=== PATIENT | female | born 1945 | race Caucasian/White ===

== ENCOUNTER → 2016-08-24 | Outpatient (CLI) | payer OTHER ==
[~2016-08-24] MED LIST: CYAN100015 BUCCAL; ESTR0.5T PO; EXCETAB PO; LEVO75TA3 PO; LISI10TA3 PO; MEDR2.5T2 PO; MULT-65 PO; PARO20TA2 PO; PNEU13P IM; SIMV20TA PO; VITA100T PO
[2016-08-24 07:46] LABS: AUTOMATED NEUTROPHIL # 3.2 TH/MM3 (1.8-7.7); BASOPHIL % 0.4 % (0.0-2.0); EOSINOPHIL # 0.2 TH/MM3 (0-0.4); EOSINOPHIL % 2.7 % (0.0-4.0); HEMO FLAGS DIFF FINAL; LYMPH % 38.1 % (9.0-44.0); LYMPHOCYTE # 2.4 TH/MM3 (1.0-4.8); MEAN CELL VOLUME 93.7 FL (80.0-100.0); MEAN CORPUSCULAR HEMOGLOBIN 31.6 PG (27.0-34.0); MEAN CORPUSCULAR HGB CONC 33.8 % (32.0-36.0); MONO % 7.5 % (0.0-8.0); NEUT % 51.3 % (16.0-70.0); PLATELET COUNT 206 TH/MM3 (150-450); RED BLOOD COUNT 4.06 MIL/MM3 (4.00-5.30); RED CELL DISTRIBUTION WIDTH 12.9 % (11.6-17.2); WHITE BLOOD COUNT 6.2 TH/MM3 (4.0-11.0)
--- NOTE | 2016-08-25 11:00 | EKG ---
Date Performed: 08/24/2016 Time Performed: 07:30:27 PTAGE: 70 years EKG: Sinus rhythm POSSIBLE LEFT ATRIAL ENLARGEMENT BORDERLINE ECG PREVIOUS TRACING : 11/11/2014 07.47 Compared to prior tracing no significant change DOCTOR: Loretta Wyman Interpretating Date/Time 08/25/2016 10:59:43
== END ==
LOC: CLAB 06:54
PROVIDERS: ATTEND Orthopaedic Surgery Hand Surgery
DX: I10 Essential (primary) hypertension (principal); R94.31 Abnormal electrocardiogram [ECG] [EKG]
CPT/HCPCS: 36415; 85025; 93005

== ENCOUNTER → 2016-08-27 | Day surgery (SDC) | payer OTHER ==
[~2016-08-27] VITALS: Ht 160 cm; Wt 73.2 kg
[~2016-08-27] MED LIST changes: +ACETAMINOPHEN 325 MG TAB PO PRN; +APREPITANT 40 MG CAP ONE; +BACITRACIN TOP OINT 15 GM TUBE ONE; +BUPIVACAINE HCL PF 0.5% 30 ML VIAL NERV BLOCK ONE; +BUPIVACAINE HCL PF 0.5% 30 ML VIAL ONE; +CLINDAMYCIN PHOS 900 MG/6 ML VIAL ONE; +FAMOTIDINE 20 MG/2 ML VIAL ONE; +LACTATED RINGER'S 1000 ML INJ 1,000 ML IV SCH; +LACTATED RINGER'S 1000 ML INJ 1,000 ML ONE; +LIDOCAINE HCL 2% 50 ML VIAL ONE; +MIDAZOLAM HCL 2 MG/2 ML VIAL ONE; +MIDAZOLAM HCL 5 MG/ML VIAL (1 ML) ONE; +ONDANSETRON HCL 4 MG/2 ML VIAL IV PRN; +PROPOFOL 200 MG/20 ML AMP IV ONE; +SODIUM CHLORIDE 0.9% INJ 100 ML ONE; +ePHEDrine/NS 25 MG/5 ML SYR IV ONE
[2016-08-27 06:47] VITALS: BP 165/83; PULSE 91; RESP 18; TEMP 98.5; O2SAT 98
[2016-08-27 07:10] VITALS: PULSE 90
[2016-08-27 11:15] VITALS: BP 123/6; PULSE 75; RESP 16; TEMP 98.2; O2SAT 100
--- NOTE | 2016-08-29 16:57 | MP ---
cc: [facility], AJAY BREEN M.D. DATE OF SURGERY August 27, 2016 PREOPERATIVE DIAGNOSIS Right trapezial metacarpal joint osteoarthritis and pain with right de Quervain's tendonitis. POSTOPERATIVE DIAGNOSIS Right trapezial metacarpal joint osteoarthritis and pain with right de Quervain's tendonitis with right scaphotrapezoid arthritis. PROCEDURE Right trapezial excision with partial trapezoidectomy and flexor carpi radialis suspensionplasty and release right first dorsal wrist compartment. ANESTHESIA Axillary block with general. TOURNIQUET TIME 56 minutes INDICATIONS Ms. Do is a pleasant 70-year-old lady with symptomatic right trapezial metacarpal joint arthritis recalcitrant to conservative therapy with injections and splinting. She also has right de Quervain's tendonitis and she is brought to operating room for definitive treatment. PROCEDURE Appropriate written consent was obtained in the preop holding area. Side and site was identified and axillary block performed on her right upper extremity by Dr. Patterson and the [employer]. She was brought to the operating room again side and site were identified and a tourniquet placed on her right arm. General anesthesia was performed by the [employer] SU[employer] and Dr. Patterson and her right upper extremity prepped and draped in the usual sterile fashion with Hibiclens, exsanguinated with an Chris wrap and tourniquet inflated to 250 mmHg where it remained for the next 56 minutes. A longitudinal incision was made just volar to the right first dorsal wrist compartment 3 cm in length. Blunt dissection proceeded with tenotomy scissors. Hemostasis with bipolar cautery. The first dorsal compartment was identified and released sharply with a 15 blade on the dorsum near its insertion and with tenotomy scissors proximally and distally. There was a separate compartment for the EPB tendon and this was released and with flexion/extension of the wrist there was no subluxation of the tendon. The wound was closed with 5-0 nylon in an interrupted fashion and 5 pounds of finger trap traction was placed on the right thumb and 3-cm incision was made over the right trapezial metacarpal joint 3 cm in length. Blunt dissection proceeded with tenotomy scissors. Hemostasis with bipolar cautery. An incision was made in the trapezial metacarpal joint capsule and elevated from about the trapezium with a 15 blade and a 6600 elem blade and splint in a longitudinal fashion with an osteotome and removed piecemeal. There were significant degenerative changes between the scaphoid and the trapezoid. Therefore, the proximal and third of the trapezoid was excised with an osteotome and a rongeur to decompress the area. The FCR tendon was identified and incision was made in the forearm 3 cm in length over the musculotendinous junction and the tendon was detached from the muscle and pulled into the wrist wound. Then the forearm wound was closed with 5-0 nylon. The FCR tendon was split in a longitudinal fashion near its insertion and a 3.2 mm drill bit was used to drill in the base of the thumb metacarpal from dorsal radial to volar ulnar in the central portion of the base of the thumb metacarpal which was eburnated. The FCR half was passed from volar to dorsal through this bone tunnel and secured onto itself with the Mac tendon passer, and a Pulvertaft weave and secured with 4-0 Mersilene, tied into a braid and secured in the trapezial space with 4-0 Mersilene. The wound was irrigated with saline. Cancellus bone from the trapezium was packed into the bone tunnel and the traction was removed and the thumb quite stable. The trapezial metacarpal joint capsule closed with 4-0 Mersilene and the skin with 5-0 nylon. Bacitracin ointment, Adaptic placed on all of the wounds and a bulky dressing with 4x4s, Sof-Rol and 3 x 12 fiberglass thumb spica splint and Chris wrap. The tourniquet was deflated after 52 minutes. The fingers pinked up immediately. The patient was taken to the recovery room in good condition having tolerated the procedure well. Estimated blood loss was minimal. MD ROSALVA Guerrero/JAKE /9:04 AM /4:29 PM WICHO
== END | disposition home or self-care (01) ==
LOC: PHSDC 06:14
PROVIDERS: ATTEND Orthopaedic Surgery Hand Surgery
DX: M65.4 Radial styloid tenosynovitis [de Quervain] (principal); M18.11 Unilateral primary osteoarthritis of first carpometacarpal joint, right hand; I10 Essential (primary) hypertension; E78.5 Hyperlipidemia, unspecified
CPT/HCPCS: 01810; 25000; 25310; 25447; 64415; J2250; J3010; J7120; J8501

== ENCOUNTER → 2016-10-18 | Outpatient (CLI) | payer OTHER ==
[~2016-10-18] MED LIST changes: -ACETAMINOPHEN 325 MG TAB PO PRN; -APREPITANT 40 MG CAP ONE; -BACITRACIN TOP OINT 15 GM TUBE ONE; -BUPIVACAINE HCL PF 0.5% 30 ML VIAL NERV BLOCK ONE; -BUPIVACAINE HCL PF 0.5% 30 ML VIAL ONE; -CLINDAMYCIN PHOS 900 MG/6 ML VIAL ONE; -CYAN100015 BUCCAL; -FAMOTIDINE 20 MG/2 ML VIAL ONE; -LACTATED RINGER'S 1000 ML INJ 1,000 ML IV SCH; -LACTATED RINGER'S 1000 ML INJ 1,000 ML ONE; -LIDOCAINE HCL 2% 50 ML VIAL ONE; -MIDAZOLAM HCL 2 MG/2 ML VIAL ONE; -MIDAZOLAM HCL 5 MG/ML VIAL (1 ML) ONE; -ONDANSETRON HCL 4 MG/2 ML VIAL IV PRN; -PROPOFOL 200 MG/20 ML AMP IV ONE; -SODIUM CHLORIDE 0.9% INJ 100 ML ONE; -ePHEDrine/NS 25 MG/5 ML SYR IV ONE
[2016-10-18 07:54] LABS: ANION GAP 6 MEQ/L (5-15); AST (GOT) 27 U/L (15-37); BLOOD UREA NITROGEN 15 MG/DL (7-18); CHLORIDE 109 MEQ/L (98-107); GLOMERULAR FILTRATION RATE 80 ML/MIN (>89); POTASSIUM 4.2 MEQ/L (3.5-5.1); SODIUM (NA) 143 MEQ/L (136-145)
[2016-10-18 08:10] LABS: ALKALINE PHOSPHATASE 92 U/L (45-117); ALT (GPT) 36 U/L (10-53); GLUCOSE,FASTING 109 MG/DL (74-99); HDL CHOLESTEROL 42.6 MG/DL (40.0-60.0); LDL CHOLESTEROL 86 MG/DL (0-99); TOTAL BILIRUBIN ADULT 0.4 MG/DL (0.2-1.0)
== END ==
LOC: CLAB 06:45
PROVIDERS: ATTEND Family Medicine
DX: E78.00 Pure hypercholesterolemia, unspecified (principal); E03.9 Hypothyroidism, unspecified
CPT/HCPCS: 36415; 80053; 80061; 84443

== ENCOUNTER 2017-01-30 15:19 | Emergency (ER) | payer OTHER ==
[~2017-01-30] VITALS: Ht 160 cm; Wt 76.0 kg
[~2017-01-30 15:19] MED LIST changes: +ESTR0.5T3 PO; -EXCETAB PO; +EXCETAB30 PO; -MEDR2.5T2 PO; +MEDR2.5T4 PO; -PNEU13P IM; +VITA10002 PO; -VITA100T PO; +ZOCO20TA PO
[2017-01-30 15:21] VITALS: BP 168/71; PULSE 95; RESP 15; TEMP 97.8; O2SAT 98
[2017-01-30] MEDS ORDERED: diphenhydrAMINE HCL 50 MG CAP PO ONE (18:30)
[2017-01-30] MEDS ORDERED: predniSONE 20 MG TAB PO ONE (18:30)
--- NOTE | 2017-01-30 18:54 | PD ---
HPI Chief Complaint: ENT Complaint Time Seen by Provider: 18:05 Travel History International Travel<30 days: No Contact w/Intl Traveler<30days: No Traveled to known affect area: No History of Present Illness HPI Patient 71-year-old female presents emergency department for evaluation of sore throat pain. Swallowing for the past few days. Patient states she has a history of recurrent bronchitis. Denies any fever denies any neck pain denies any rash. Does endorse cough and congestion. Symptoms are moderate gradually worsening. PFSH Past Medical History Cancer: Yes (SKIN) Diabetes: No Diminished Hearing: No Endocrine: Yes Glaucoma: No Headaches: Yes Hepatitis: No Hiatal Hernia: No Hypertension: Yes (JUST WATCHING--NO MEDS YET) Immune Disorder: No Medical other: Yes (HYPERLIPIDEMIA) Musculoskeletal: Yes (ARTHRITIS) Neurologic: No Psychiatric: Yes (DEPRESSION) Reproductive: No Respiratory: Yes (JIN) Immunizations Current: Yes Thyroid Disease: Yes (LOW) Menopausal: Yes Tubal Ligation: Yes (1971) Past Surgical History Abdominal Surgery: Yes (APPY) AICD: No Cardiac Surgery: No Ear Surgery: No Endocrine Surgery: No Eye Surgery: No Genitourinary Surgery: No Gynecologic Surgery: Yes (TUBAL LIGATION) Joint Replacement: Yes (RIGHT KNEE) Oral Surgery: No Pacemaker: No Thoracic Surgery: No Other Surgery: Yes Social History Alcohol Use: No Tobacco Use: No Substance Use: No Allergies-Medications (Allergen,Severity, Reaction): Coded Allergies: acetaminophen (Unverified Allergy, Mild, ITCHING, 01/30/17) ANAL ,VAGINAL AND FACIAL ITCHING- INTERMEDIATE REACTION hydrocodone (Unverified Allergy, Mild, ITCHING, 01/30/17) ANAL ,VAGINAL AND FACIAL ITCHING- INTERMEDIATE REACTION morphine (Unverified Adverse Reaction, Intermediate, SEVERE VOMITING, 01/30) propoxyphene (Unverified Adverse Reaction, Intermediate, SHAKES, 01/30/17) codeine (Unverified Adverse Reaction, Mild, VOMITING,DIZZINESS, 01/30/17) INTERMEDIATE REACTION meperidine (Unverified Adverse Reaction, Mild, VOMITING, 01/30/17) INTERMEDIATE REACTION penicillin G (Unverified Adverse Reaction, Mild, VOMITING, 01/30/17) VOMITING AND SEVERE RASH - INTERMEDIATE REACTION *MDRO Multi-Drug Resistant Organism (Verified Adverse Reaction, Unknown, 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 Reported Meds & Prescriptions Reported Meds & Active Scripts Active Prednisone 20 Mg Tab 60 Mg PO DAILY 5 Days Lisinopril 10 Mg Tab 10 Mg PO DAILY Simvastatin 20 Mg Tab 20 Mg PO HS Levothyroxine (Levothyroxine Sodium) 75 Mcg Tab 75 Mcg PO DAILY Reported Paroxetine (Paroxetine HCl) 20 Mg Tab 20 Mg PO HS Medroxyprogesterone Acetate 2.5 Mg Tablet 1 Tab PO DAILY Estrace (Estradiol) 0.5 Mg Tab 0.5 Mg PO DAILY Vitamin B-12 (Cyanocobalamin) 1,000 Mcg Tab 1,000 Mcg PO DAILY Excedrin Migraine Caplet (Aspirin/Acetaminophen/Caffeine) 1 Each Tablet 1 Tab PO Q12HR PRN Estradiol 0.5 Mg Tab 0.5 Mg PO DAILY Multi-Vitamin Daily (Multiple Vitamin) 1 Tab Tab 1 Tab PO DAILY Review of Systems Except as stated in HPI: all other systems reviewed are Neg Physical Exam Narrative GENERAL: Well-nourished, well-developed patient. SKIN: Focused skin assessment warm/dry. HEAD: Normocephalic. EYES: No scleral icterus. No injection or drainage. ENT: TMs clear bilaterally, oropharynx clear however there is some erythema surrounding the uvula the uvula is midline. Uvula is probably 2 cm in length probably consistent with uvulitis. Swallow is intact. NECK: Supple, trachea midline. No JVD or lymphadenopathy. Full nontender range of motion. CARDIOVASCULAR: Regular rate and rhythm without murmurs, gallops, or rubs. RESPIRATORY: Breath sounds equal bilaterally. No accessory muscle use. GASTROINTESTINAL: Abdomen soft, non-tender, nondistended. MUSCULOSKELETAL: No cyanosis, or edema. BACK: Nontender without obvious deformity. No CVA tenderness. Data Data Last Documented VS Vital Signs Date Time Temp Pulse Resp B/P (MAP) Pulse Ox O2 Delivery O2 Flow Rate FiO2 01/30/17 19:41 83 18 182/74 (110) 97 01/30/17 15:21 97.8 Orders Orders Diphenhydramine (Benadryl) (01/30/17 18:30) Prednisone (Deltasone) (01/30/17 18:30) MDM Medical Decision Making Medical Screen Exam Complete: Yes Emergency Medical Condition: Yes Differential Diagnosis URI, uvulitis, pneumonia unlikely, lisinopril associated angioedema unlikely. Narrative Course patient roomed emerged permit, observed for an hour while in the examination room. She's had no worsening of her symptoms and feels well to go. Likely diagnosis of uvulitis likely viral. Discussed symptomatic management we'll place on empiric prednisone. Discussed return to ED criteria and criteria call 911. Discussed need to follow up with her primary care physician and discuss lisinopril but at this time my suspicion for JUDIT angioedema is quite low. Diagnosis Primary Impression: Uvulitis Departure Forms: Tests/Procedures, Work Release Enter return to work date: Feb 01, 2017 Additional Instructions: Benadryl 25mg orally every 12 hours as needed for sore throat. Med/Other Pt SpecificInfo: Prescription(s) given Scripts Prednisone (Prednisone) 20 Mg Tab 60 MG PO DAILY for 5 Days, #15 TAB 0 Refills Prov: Mp Ward MD 01/30/17 Disposition: 01 DISCHARGE HOME Condition: Stable Mp Ward MD Jan 30, 2017 18:54
[2017-01-30] MEDS ORDERED: PRED20 PO (19:00)
[2017-01-30 19:41] VITALS: BP 182/74
== END 2017-01-30 19:42 | disposition home or self-care (01) ==
LOC: NEPD 15:19
DX: K12.2 Cellulitis and abscess of mouth (principal)
CPT/HCPCS: 99283; J7512; Q0163

== ENCOUNTER → 2017-04-18 | Outpatient (CLI) | payer OTHER ==
[~2017-04-18] MED LIST changes: -EXCETAB30 PO; +EXCETAB31 PO; +PRED20 PO; +PRIN10TA; -ZOCO20TA PO
[2017-04-18 07:22] LABS: ALT (GPT) 31 U/L (10-53); ANION GAP 7 MEQ/L (5-15); AST (GOT) 21 U/L (15-37); BICARBONATE 26.9 MEQ/L (21.0-32.0); BLOOD UREA NITROGEN 17 MG/DL (7-18); CHLORIDE 108 MEQ/L (98-107); GLOMERULAR FILTRATION RATE 64 ML/MIN (>89); GLUCOSE,FASTING 111 MG/DL (74-99); POTASSIUM 3.8 MEQ/L (3.5-5.1); SODIUM (NA) 142 MEQ/L (136-145)
[2017-04-18 07:31] LABS: ALKALINE PHOSPHATASE 80 U/L (45-117); HDL CHOLESTEROL 52.5 MG/DL (40.0-60.0); LDL CHOLESTEROL 72 MG/DL (0-99); TOTAL BILIRUBIN ADULT 0.6 MG/DL (0.2-1.0)
== END ==
LOC: CLAB 06:36
PROVIDERS: ATTEND Family Medicine
DX: E03.9 Hypothyroidism, unspecified (principal); E78.5 Hyperlipidemia, unspecified
CPT/HCPCS: 36415; 80053; 80061; 84443

== ENCOUNTER → 2017-06-14 | Day surgery (SDC) | payer OTHER ==
[~2017-06-14] MED LIST changes: +ALEV220T14 PO; -ESTR0.5T PO; -ESTR0.5T3 PO; +LIDOCAINE HCL 1% 30 ML VIAL NERV BLOCK ONE; -MEDR2.5T4 PO; -PRED20 PO; -PRIN10TA; +PROPOFOL 200 MG/20 ML AMP IV ONE; +SODIUM CHLORIDE 0.9% 10 ML VIAL ONE; +TRIAMCINOLONE ACETONIDE 40 MG/ML VIAL NERV BLOCK ONE
--- NOTE | 2017-06-16 10:03 | M6 ---
cc: Kelby CURIEL DATE 06/14/2017 Date of 1945 PROCEDURE Fluoroscopically guided T1-T2 interlaminar epidural steroid injection. PROCEDURE NOTE History and physical was completed and signed. Consent was signed. Procedure site was marked. Medications were listed and reconciled. Pain score was recorded. Allergies were noted. Time out was taken. Fluoroscopy time was recorded where applicable. Sedation was administered or directed by Dr. Curiel. The patient was given oxygen. The patient was monitored by a registered nurse. Total procedure time was greater than 15 minutes. IV was started, blood pressure cuff, pulse oximeter and EKG were applied. The patient was placed in the prone position on a Evan table sedated with small amounts of propofol titrated to effect. Vital signs were monitored and remained stable throughout the procedure. The cervical area was prepped with alcohol and 10% Betadine solution and draped with sterile drapes. Fluoroscopy was used to visualize the T1-T2 interlaminar space. The skin was infiltrated with 1% Xylocaine using a 27 gauge needle, then a 3-1/2-inch 18-gauge Thompson needle was advanced using fluoroscopic guidance and the [id number] technique into the epidural space at T1-T2 slightly to the left of the midline. There was negative aspiration for blood or any other type of fluid and the patient was given 4 mL of normal saline which contained 60 mg of Kenalog. Following this, the patient was taken to the recovery room with stable vital signs neurologically intact. She will be evaluated immediately and with followup to determine if she has a subjective decrease in the usual pain and a corresponding objective increase in her functional capabilities. MD AYANA Braga/JESSIKA /8:15 AM /9:52 AM
== END | disposition home or self-care (01) ==
LOC: PHSDC 06:57
PROVIDERS: ATTEND Pain Medicine Interventional Pain Medicine
DX: M25.512 Pain in left shoulder (principal); R20.0 Anesthesia of skin; M54.5 Low back pain; M79.652 Pain in left thigh; M79.651 Pain in right thigh
CPT/HCPCS: 62321; 99152; J3010; J3301

== ENCOUNTER → 2017-09-12 | Day surgery (SDC) | payer OTHER ==
[~2017-09-12] MED LIST changes: +ESTR0.5T PO; +LIDOCAINE HCL 1% 30 ML VIAL INFIL ONE; -LIDOCAINE HCL 1% 30 ML VIAL NERV BLOCK ONE; +MEDR5TAB3 PO
--- NOTE | 2017-09-12 08:53 | M6 ---
cc: Kelby Curiel MD DATE: 09/12/2017 PROCEDURE PERFORMED: Fluoroscopically guided T1-T2 interlaminar epidural steroid injection. History and physical was completed and signed. Consent was signed. Procedure site was marked. Medications were listed and reconciled. Pain score was recorded. Allergies were noted. Time out was taken. Fluoroscopy time was recorded where applicable. Sedation was administered or directed by Dr. Curiel. The patient was given oxygen. The patient was monitored by a registered nurse. Total procedure time was greater than 15 minutes. DESCRIPTION OF THE PROCEDURE: IV was started, blood pressure cuff pulse oximeter and EKG were applied. The patient was placed in the prone position on a Evan table, sedated with small amounts of Demerol and propofol titrated to effect. Vital signs were monitored and remained stable throughout the procedure. The cervical area was prepped with alcohol and 10% Betadine solution and draped with sterile drapes. Fluoroscopy was used to visualize the T1-T2 interlaminar space. The skin was infiltrated with 1% Xylocaine using a 27-gauge needle. Then, a 3-1/2 inch 18 gauge Thompson needle was advanced using fluoroscopic guidance and the loss of resistance technique into the epidural space at T1-T2, slightly to the left of the midline. There was negative aspiration for blood or any other type of fluid and the patient was given 6 mL of normal saline and 60 mg of Kenalog. Following the procedure, the patient was taken to the recovery room with stable vital signs neurologically intact. She will be evaluated immediately and with followup to determine if she has a subjective decrease in her usual pain and a corresponding objective increase in her functional capabilities. Kelby Curiel MD WRM/DL , 08:42 AM , 08:52 AM
== END | disposition home or self-care (01) ==
LOC: PHSDC 06:33
PROVIDERS: ATTEND Pain Medicine Interventional Pain Medicine
DX: M54.12 Radiculopathy, cervical region (principal); R20.2 Paresthesia of skin
CPT/HCPCS: 62321; 99152; J3010; J3301

== ENCOUNTER → 2017-10-12 | Outpatient (CLI) | payer OTHER ==
[~2017-10-12] MED LIST changes: +BIOT10TA PO; +KETO10 PO; -LIDOCAINE HCL 1% 30 ML VIAL INFIL ONE; -PROPOFOL 200 MG/20 ML AMP IV ONE; -SODIUM CHLORIDE 0.9% 10 ML VIAL ONE; +TRAM50TA PO; -TRIAMCINOLONE ACETONIDE 40 MG/ML VIAL NERV BLOCK ONE
[2017-10-12 08:49] LABS: AUTOMATED NEUTROPHIL # 3.5 TH/MM3 (1.8-7.7); BASOPHIL % 0.4 % (0.0-2.0); EOSINOPHIL # 0.3 TH/MM3 (0-0.4); EOSINOPHIL % 4.1 % (0.0-4.0); HEMATOCRIT 35.5 % (35.0-46.0); HEMOGLOBIN 12.2 GM/DL (11.6-15.3); LYMPH % 30.7 % (9.0-44.0); LYMPHOCYTE # 1.9 TH/MM3 (1.0-4.8); MEAN CELL VOLUME 96.5 FL (80.0-100.0); MEAN CORPUSCULAR HEMOGLOBIN 33.3 PG (27.0-34.0); MEAN CORPUSCULAR HGB CONC 34.5 % (32.0-36.0); MEAN PLATELET VOLUME 7.2 FL (7.0-11.0); MONO % 8.1 % (0.0-8.0); MONOCYTE # 0.5 TH/MM3 (0-0.9); NEUT % 56.7 % (16.0-70.0); PLATELET COUNT 225 TH/MM3 (150-450); RED BLOOD COUNT 3.68 MIL/MM3 (4.00-5.30); WHITE BLOOD COUNT 6.2 TH/MM3 (4.0-11.0)
[2017-10-12 09:02] LABS: ALBUMIN 3.6 GM/DL (3.4-5.0); AST (GOT) 17 U/L (15-37); BICARBONATE 27.4 MEQ/L (21.0-32.0); BLOOD UREA NITROGEN 16 MG/DL (7-18); CALCIUM 9.1 MG/DL (8.5-10.1); CHLORIDE 108 MEQ/L (98-107); CREATININE 0.94 MG/DL (0.50-1.00); GLOMERULAR FILTRATION RATE 59 ML/MIN (>89); GLUCOSE,FASTING 103 MG/DL (74-99); SODIUM (NA) 143 MEQ/L (136-145)
[2017-10-12 09:03] LABS: PROTHROMBIN TIME - PATIENT 9.9 SEC (9.8-11.6)
[2017-10-12 09:04] LABS: ALT (GPT) 33 U/L (10-53)
[2017-10-12 09:06] LABS: ALKALINE PHOSPHATASE 85 U/L (45-117); TOTAL BILIRUBIN ADULT 0.5 MG/DL (0.2-1.0); TOTAL PROTEIN 7.1 GM/DL (6.4-8.2)
--- NOTE | 2017-10-12 09:42 | RADRPT ---
EXAM DATE: 10/12/2017 8:49 AM EDT AGE/SEX: 72 years / Female INDICATIONS: Evaluate for pneumonia, pneumothorax, or any communicable disease. Pre op lower back donovan rgery. CLINICAL DATA: This is the patient's initial encounter. Patient reports that signs and symptoms have been present for 1 day and indicates a pain score of 0/10. MEDICAL/SURGICAL HISTORY: None. None. COMPARISON: No prior exams available for comparison. FINDINGS: Mild scoliosis with minimal parental changes right base. Cardiac silhouette mildly prominent. Minimal scoliosis with degenerative changes.. CONCLUSION: Mild prominence cardiac silhouette with minimal degenerative changes lumbar spine. Electronically signed by: Joshua Seaman MD 10/12/2017 9:40 AM EDT
--- NOTE | 2017-10-12 13:08 | EKG ---
Date Performed: 10/12/2017 Time Performed: 08:06:42 PTAGE: 72 years EKG: Sinus rhythm POSSIBLE LEFT ATRIAL ENLARGEMENT INFERIOR MYOCARDIAL INFARCTION, PROBABLY OLD ABNORMAL ECG PREVIOUS TRACING : 08/24/2016 07.30 DOCTOR: Kaiser Pablo Interpretating Date/Time 10/12/2017 13:04:40
== END ==
LOC: CPRE 07:44
PROVIDERS: ATTEND Neurological Surgery
DX: Z01.810 Encounter for preprocedural cardiovascular examination (principal); Z01.812 Encounter for preprocedural laboratory examination; Z01.818 Encounter for other preprocedural examination; R94.31 Abnormal electrocardiogram [ECG] [EKG]; M43.16 Spondylolisthesis, lumbar region; M54.16 Radiculopathy, lumbar region
CPT/HCPCS: 36415; 71046; 80053; 85025; 85610; 85730; 87640; 87641; 93005

== ENCOUNTER 2017-10-18 09:12 | Inpatient (IN) | payer OTHER ==
[~2017-10-18] VITALS: Ht 160 cm; Wt 80.3 kg
[~2017-10-18 09:12] MED LIST changes: -KETO10 PO; -MEDR5TAB3 PO; -TRAM50TA PO
[2017-10-18] MEDS ORDERED: ceFAZolin 1,000 MG/NS 100 ML IV SCH ×2 (10:00)
[2017-10-18] MEDS ORDERED: LACTATED RINGER'S 1000 ML INJ 1,000 ML IV SCH (10:00)
[2017-10-18] MEDS ORDERED: INSULIN HUMAN REGULAR 1,000 UNITS/10 ML VIAL SQ PRN (10:00)
[2017-10-18] MEDS ORDERED: POVIDONE IODINE 5% (ANTISEPSIS KIT) 4 APPLICATIONS EACH NARE PRN (10:00)
[2017-10-18] MEDS ORDERED: METOPROLOL TARTRATE 25 MG TAB PO PRN (10:00)
[2017-10-18] MEDS ORDERED: SODIUM CHLORID 0.9% 500 ML IV PRN (10:00)
[2017-10-18] MEDS ORDERED: CHLORHEXIDINE GLUCONATE 2 % 1 PACK (2 CLOTHS) TOPICAL PRN (10:00)
[2017-10-18] MEDS ORDERED: LACTATED RINGER'S 1000 ML IV PRN (10:00)
[2017-10-18] MEDS ORDERED: CLINDAMYCIN PHOS 600 MG/4 ML VIAL ONE ×2 (10:04→11:08)
[2017-10-18] MEDS ORDERED: GELFOAM SIZE 100 ONE ×2 (11:08→12:48)
[2017-10-18] MEDS ORDERED: THROMBIN (TOPICAL) 5,000 UNIT VIAL ONE (11:08)
[2017-10-18] MEDS ORDERED: LIDOCAINE 1%/EPINEPHrine 1:100,000 SOLN 20 ML VIAL ONE (11:08)
[2017-10-18] MEDS ORDERED: GENTAMICIN SULFATE 80 MG/2 ML VIAL ONE (11:09)
[2017-10-18] MEDS ORDERED: GLYCOPYRROLATE 1 MG/5 ML SYRINGE IV PUSH ONE (12:00)
[2017-10-18] MEDS ORDERED: LACTATED RINGER'S 1000 ML INJ 2,000 ML IV ONE (12:00)
[2017-10-18] MEDS ORDERED: DEXAMETHASONE SOD PHOS 4 MG/ML VIAL IV ONE (12:00)
[2017-10-18] MEDS ORDERED: LIDOCAINE HCL 1% PF 5 ML SYRINGE OTHER ONE (12:00)
[2017-10-18] MEDS ORDERED: PROPOFOL 200 MG/20 ML AMP IV ONE (12:00)
[2017-10-18] MEDS ORDERED: PHENYLEPH/NS 1000 MCG/10 ML SYR IV ONE (12:00)
[2017-10-18] MEDS ORDERED: NEOSTIGMINE 5 MG/5 ML SYRINGE IV PUSH ONE (12:00)
[2017-10-18] MEDS ORDERED: PHENYLEPHRINE HCL 10 MG/ML VIAL IV ONE (12:00)
[2017-10-18] MEDS ORDERED: ROCURONIUM INJ 50 MG/5 ML SYRINGE IV PUSH ONE (12:00)
[2017-10-18] MEDS ORDERED: ONDANSETRON HCL 4 MG/2 ML VIAL IV ONE (12:00)
[2017-10-18] MEDS ORDERED: ePHEDrine/NS 25 MG/5 ML SYRINGE IV ONE (12:00)
[2017-10-18] MEDS ORDERED: ACETAMINOPHEN 1000 MG/100 ML 100 ML IV ONE (12:23)
[2017-10-18] MEDS ORDERED: KETAMINE HCL 500 MG/10 ML VIAL ONE (12:23)
[2017-10-18] MEDS ORDERED: PROPOFOL 500 MG/50 ML INJ 50 ML ONE (12:25)
[2017-10-18] MEDS ORDERED: PROPOFOL 500 MG/50 ML INJ 100 ML ONE ×2 (12:26→18:14)
[2017-10-18] MEDS ORDERED: BUPIVACAINE LIPOSOME PF 1.3% 20 ML VIAL ONE (17:27)
[2017-10-18] MEDS ORDERED: BUPIVACAINE LIPOSOME PF 1.3% 20 ML VIAL INFIL ONE (18:30)
[2017-10-18] MEDS ORDERED: MIDAZOLAM HCL 2 MG/2 ML VIAL ONE (19:02)
[2017-10-18] MEDS ORDERED: ASPIRIN PO PRN (20:30)
[2017-10-18] MEDS ORDERED: METHOCARBAMOL 500 MG TAB PO PRN (20:30)
[2017-10-18] MEDS ORDERED: ONDANSETRON HCL 4 MG/2 ML VIAL IV PUSH PRN (20:30)
[2017-10-18] MEDS ORDERED: DO NOT ADM ANY ANTICOAGULANT DRUGS PRN (20:30)
[2017-10-18] MEDS ORDERED: ACETAMINOPHEN PO PRN (20:30)
[2017-10-18] MEDS ORDERED: CAFFEINE PO PRN (20:30)
--- NOTE | 2017-10-18 20:44 | PD.OP ---
Operative Report Date of Surgery: Oct 18, 2017 Preoperative Diagnosis: (1) Spondylolisthesis of lumbar region (2) Lumbar radiculopathy (3) Lumbar stenosis 1. Grade 1 L3-4 spondylolisthesis 2. Severe L3-4 stenosis 4. Left L4 radiculopathy 5. Neurogenic claudication Postoperative Diagnosis: (1) Spondylolisthesis of lumbar region (2) Lumbar radiculopathy (3) Lumbar stenosis 1. Grade 1 L3-4 spondylolisthesis 2. Severe L3-4 stenosis 4. Left L4 radiculopathy 5. Neurogenic claudication 6. Left L3 pars interarticularis defect Procedure: 1. Bilateral L3-4 decompressive semi-laminectomy, medial facetectomy 2. Left L3-4 facetectomy, foraminotomy, resection fractured pars interarticularis, for decompression left L3 and L4 nerve roots. 3. Left L3-4 discectomy, interbody fusion, PEEK cage, autograft and allograft bone 4. Left L3-4 posterior instrumentation with pedicle screw fixation 5. Left L3-4 posterior lateral fusion with autograft and allograft bone. Anesthesia: General Surgeon: Jose Chun Chief Concierge(s): Mian Trujillo Operation and Findings: Indications: 72-year-old female with severe progressive left L4 radicular pain, more recent progression bilateral hip and thigh pain with ambulation. Preoperative study reveals grade 1 L3-4 spondylolisthesis with severe canal lateral recess stenosis. Findings: Left L5 pars fracture Procedure in detail The patient was brought to the operating room and general endotracheal anesthesia induced without difficulty Lines were established per Anesthesia Sequential compression devices were in place The patient was positioned prone on the concentric Evan table with the side bolsters and all extremities appropriately padded Leads for intraoperative neuro monitoring were placed prior to positioning and a baseline study obtained Appropriate timeout procedure was performed with all personnel present and in agreement The lumbar region was shaved with clippers and sterilely prepped and draped 1% Xylocaine with epinephrine was used for local infiltration over the incision site which was made approximately 4 cm lateral to the midline at the left L3- 4 level and carried sharply down to the fascia. The fascia was sharply incised and finger dissection was used to separate the normal intermuscular plane at the left L3-4 level, allowing direct palpation of the junction of the and pedicle and transverse process on each side. The entry point for the pedicle screws were determined by anatomic and radiographic landmarks. Using AP and lateral C-arm imaging, the Jamshidi needle was guided through the left L3 and L4 pedicle. The intraoperative C-arm imaging was used to verify appropriate Jamshidi needle placement. The wires were then placed through the Jamshidi needle cannulas, and the cannula was withdrawn. The wires were temporarily clipped away from the operative field. On the left side Doll elevator was used for subperiosteal elevation of paraspinous musculature and fascia away from the lamina and spinous processes The deep self-retaining retractor was placed The appropriate levels were verified with intraoperative C-arm The microscope was moved into place and used for the remainder of the procedure including the closure The TPS drill with a 5 mm bone bur followed by the Kerrison rongeur was used to remove the inferior two thirds of the lamina at the cephalad level of the decompression and the superior third of the lamina at the caudal level of the decompression. This was performed starting on the left side, and then working across midline towards the right. The foraminotomy was performed on each side with the 2 and 3 mm Kerrison rongeur. On the side of the cage placement, an additional portion of the medial facet was removed to allow sufficient room for placement of the cage without significant retraction of the thecal sac and exiting nerve root. Hypertrophied ligamentum flavum was elevated away from the thecal sac and exiting nerve roots with the thin ligament dissector and resected with a 15 blade knife and Kerrison rongeur. The thecal sac and exiting nerve root were freed up from surrounding adhesions with the microdissectors and gently retracted medially revealing the underlying disc and annulus. There was moderate subannular disc herniation. The annulus was incised with the 11 blade knife and discectomy performed with pituitary biopsy forceps and straight and angled curettes The endplate scrapers were used to decorticate the endplates and any remaining debris was removed with the antibiotic irrigation and suction and pituitary biopsy forceps The appropriate size 8 x 10 mm PEEK cage was packed with retained lamina cancellus autograft And a small amount of demineralized bone matrix The cage was placed at the L3-4 level with a good fit of the cage. The placement was checked under the microscope and with intraoperative C-arm and felt to be satisfactory. The thecal sac and nerve roots were probed with the long blunt nerve hook and felt to be well decompressed The cannulated 5.5 mm tap was then used to prepare the pedicle screw sites on each side, with the dilators used to protect the surrounding tissue. The appropriate length 6.5 mm spine Wave Sniper percutaneous cannulated pedicle screw attached to the MIS extenders were placed into the L3 and L4 pedicle using the existing guidewires which were then removed. Pedicle screw placement was checked with intraoperative C-arm imaging and felt to be satisfactory. The percutaneous rods were placed across the pedicle screws on each side. The locking caps were secured with the torque wrench and anti-torque device Compression and alignment were achieved as necessary with the rods and reducers. The entire construct was checked with intraoperative C-arm and felt to be satisfactory The region was well irrigated with antibiotic irrigation The posterior lateral structures at the left L3-4 level was decorticated with the TPS drill The shavings were left in place, to which was added the remaining autograft and allograft bone which was firmly packed in place for the posterior lateral fusion. The 7 mm flat fluted drain was left in place at the operative side and brought out through a incision at the upper lumbar region and secured to the skin with nylon suture and attached to sterile suction bleeding was carefully controlled with the bipolar forceps The closure was performed with 0 Vicryl interrupted for the deep and superficial fascia, with 3-0 Vicryl for the subcutaneous closure and 4-0 Vicryl running subcuticular closure. Dressings sterile Mastisol, Steri-Strips and Primapore was placed The patient was turned into supine position and taken to recovery room in stable condition All counts were correct at the end of the case Estimated blood loss was 100 cc No specimen was sent to pathology Neuro monitoring was stable during the procedure Jose Chun MD Oct 18, 2017 20:44
[2017-10-18] MEDS: D5-1/2 NS + KCL 20 MEQ INJ 1,000 ML IV SCH (20:45)
[2017-10-18] MEDS: PARoxetine HCL 20 MG TAB PO SCH (21:00)
[2017-10-18] MEDS: DOCUSATE SODIUM 100 MG CAP PO SCH (21:00)
--- NOTE | 2017-10-18 21:05 | RADRPT ---
EXAM DATE: 10/18/2017 8:43 PM EDT AGE/SEX: 72 years / Female INDICATIONS: L3-4 Posterior lumbar fusion. CLINICAL DATA: This is the patient's initial encounter. Patient reports that signs and symptoms have been present for 1 day and indicates a pain score of Nonresponsive. MEDICAL/SURGICAL HISTORY: Non-responsive. Non-responsive. COMPARISON: No prior exams available for comparison. FINDINGS: AP and crosstable lateral views of the lumbar spine demonstrate intradiscal with left transpedicular screw and posterior antelmo fixation at L3-4 . Hardware appears intact and well-positioned. Vertebral bod y heights are intact without significant bony fracture. CONCLUSION: 1. L3-4 posterior fixation, as above. Electronically signed by: Wilber Ennis MD 10/18/2017 9:04 PM EDT
[2017-10-18 21:23] LABS: AUTOMATED NEUTROPHIL # 8.9 TH/MM3 (1.8-7.7); BASOPHIL % 0.2 % (0.0-2.0); EOSINOPHIL % 0.1 % (0.0-4.0); HEMATOCRIT 36.8 % (35.0-46.0); HEMOGLOBIN 12.5 GM/DL (11.6-15.3); LYMPH % 6.9 % (9.0-44.0); LYMPHOCYTE # 0.7 TH/MM3 (1.0-4.8); MEAN CELL VOLUME 96.6 FL (80.0-100.0); MEAN CORPUSCULAR HEMOGLOBIN 32.7 PG (27.0-34.0); MEAN CORPUSCULAR HGB CONC 33.9 % (32.0-36.0); MEAN PLATELET VOLUME 7.4 FL (7.0-11.0); MONO % 1.6 % (0.0-8.0); MONOCYTE # 0.2 TH/MM3 (0-0.9); NEUT % 91.2 % (16.0-70.0); PLATELET COUNT 242 TH/MM3 (150-450); RED BLOOD COUNT 3.81 MIL/MM3 (4.00-5.30); RED CELL DISTRIBUTION WIDTH 14.1 % (11.6-17.2); WHITE BLOOD COUNT 9.7 TH/MM3 (4.0-11.0)
[2017-10-18 21:50] LABS: BICARBONATE 25.3 MEQ/L (21.0-32.0); CREATININE 0.88 MG/DL (0.50-1.00)
[2017-10-18 21:59] VITALS: BP 145/69; PULSE 100; RESP 18; TEMP 98.3; O2SAT 97
[2017-10-18] MEDS ORDERED: PILL SPLITTER OTHER PRN (22:00)
[2017-10-18] MEDS: KETOROLAC TROMETHAMINE 30 MG/ML (IVP) VIAL IV PUSH SCH (22:00)
[2017-10-18] MEDS ORDERED: ACETAMINOPHEN 325 MG TAB PO PRN (22:45)
[2017-10-18] MEDS ORDERED: NALOXONE HCL 0.4 MG/ML AMP IV PUSH PRN (22:45)
[2017-10-18] MEDS ORDERED: ONDANSETRON ODT 4 MG TAB PO PRN (23:15)
[2017-10-19 00:31] VITALS: BP 141/73; PULSE 106; RESP 18; TEMP 97.9; O2SAT 97
[2017-10-19] MEDS: KETOROLAC TROMETHAMINE 30 MG/ML (IVP) VIAL IV PUSH SCH ×3 (05:07→21:56)
[2017-10-19] MEDS: LEVOTHYROXINE SODIUM 75 MCG TAB PO SCH (05:07)
[2017-10-19 05:47] VITALS: BP 149/69; PULSE 104; RESP 18; TEMP 98; O2SAT 98
[2017-10-19 08:00] VITALS: BP 119/62; PULSE 74; RESP 17; TEMP 98.7; O2SAT 97
[2017-10-19] MEDS: MULTIVITAMIN TAB PO SCH (08:40)
[2017-10-19] MEDS: DOCUSATE SODIUM 100 MG CAP PO SCH ×2 (08:41→21:00)
[2017-10-19] MEDS: ESTRADIOL 1 MG TAB PO SCH (08:42)
[2017-10-19] MEDS: LISINOPRIL 10 MG TAB PO SCH (08:42)
[2017-10-19] MEDS: D5-1/2 NS + KCL 20 MEQ INJ 1,000 ML IV SCH ×2 (08:43→17:36)
[2017-10-19] MEDS: CYANOCOBALAMIN 1,000 MCG TAB PO SCH (08:47)
[2017-10-19] MEDS ORDERED: NON-FORMULARY DRUG (Biotin 10 MG) PO SCH (09:00)
[2017-10-19 12:00] VITALS: BP 123/52; PULSE 98; RESP 17; TEMP 99.3; O2SAT 94
[2017-10-19 12:04] LABS: AUTOMATED NEUTROPHIL # 13.5 TH/MM3 (1.8-7.7); HEMATOCRIT 32.2 % (35.0-46.0); HEMOGLOBIN 10.9 GM/DL (11.6-15.3); LYMPH % 7.4 % (9.0-44.0); LYMPHOCYTE # 1.1 TH/MM3 (1.0-4.8); MEAN CELL VOLUME 97.4 FL (80.0-100.0); MEAN CORPUSCULAR HGB CONC 33.8 % (32.0-36.0); MEAN PLATELET VOLUME 7.5 FL (7.0-11.0); MONO % 3.8 % (0.0-8.0); MONOCYTE # 0.6 TH/MM3 (0-0.9); NEUT % 88.8 % (16.0-70.0); PLATELET COUNT 241 TH/MM3 (150-450); RED BLOOD COUNT 3.31 MIL/MM3 (4.00-5.30); RED CELL DISTRIBUTION WIDTH 13.9 % (11.6-17.2); WHITE BLOOD COUNT 15.2 TH/MM3 (4.0-11.0)
[2017-10-19 12:31] LABS: BICARBONATE 24.4 MEQ/L (21.0-32.0); CALCIUM 8.6 MG/DL (8.5-10.1); CREATININE 0.91 MG/DL (0.50-1.00)
[2017-10-19 16:00] VITALS: BP 113/54; PULSE 91; RESP 17; TEMP 98.8; O2SAT 96
--- NOTE | 2017-10-19 20:20 | HHI.NSPN ---
History Chief Complaint: Back pain Interval History Date of Surgery: Oct 18, 2017 Postoperative Diagnosis: (1) Spondylolisthesis of lumbar region (2) Lumbar radiculopathy (3) Lumbar stenosis 1. Grade 1 L3-4 spondylolisthesis 2. Severe L3-4 stenosis 4. Left L4 radiculopathy 5. Neurogenic claudication 6. Left L3 pars interarticularis defect Procedure: 1. Bilateral L3-4 decompressive semi-laminectomy, medial facetectomy 2. Left L3-4 facetectomy, foraminotomy, resection fractured pars interarticularis, for decompression left L3 and L4 nerve roots. 3. Left L3-4 discectomy, interbody fusion, PEEK cage, autograft and allograft bone 4. Left L3-4 posterior instrumentation with pedicle screw fixation 5. Left L3-4 posterior lateral fusion with autograft and allograft bone. 10/19/2017: In physical therapy ambulated 60 feet with 1/10 pain. Exam Results Vital Signs Date Time Temp Pulse Resp B/P (MAP) Pulse Ox O2 Delivery O2 Flow Rate FiO2 10/19/17 16:00 98.8 91 17 113/54 (73) 96 10/18/17 21:00 Nasal Cannula 2 Intake and Output 10/19/17 10/19/17 10/20/17 08:00 16:00 00:00 Intake Total 900 ml Output Total 800 ml 1150 ml 25 ml Balance -800 ml -1150 ml 875 ml Physical Examination Awake and alert Speech clear and appropriate Dressing dry and intact Moderate drain output Sensorimotor intact lower extremities Lab, Micro, Other Results Laboratory Tests Test 10/18/17 20:26 10/19/17 11:35 White Blood Count 9.7 TH/MM3 15.2 TH/MM3 Red Blood Count 3.81 MIL/MM3 3.31 MIL/MM3 Hemoglobin 12.5 GM/DL 10.9 GM/DL Hematocrit 36.8 % 32.2 % Mean Corpuscular Volume 96.6 FL 97.4 FL Mean Corpuscular Hemoglobin 32.7 PG 33.0 PG Mean Corpuscular Hemoglobin Concent 33.9 % 33.8 % Red Cell Distribution Width 14.1 % 13.9 % Platelet Count 242 TH/MM3 241 TH/MM3 Mean Platelet Volume 7.4 FL 7.5 FL Neutrophils (%) (Auto) 91.2 % 88.8 % Lymphocytes (%) (Auto) 6.9 % 7.4 % Monocytes (%) (Auto) 1.6 % 3.8 % Eosinophils (%) (Auto) 0.1 % 0.0 % Basophils (%) (Auto) 0.2 % 0.0 % Neutrophils # (Auto) 8.9 TH/MM3 13.5 TH/MM3 Lymphocytes # (Auto) 0.7 TH/MM3 1.1 TH/MM3 Monocytes # (Auto) 0.2 TH/MM3 0.6 TH/MM3 Eosinophils # (Auto) 0.0 TH/MM3 0.0 TH/MM3 Basophils # (Auto) 0.0 TH/MM3 0.0 TH/MM3 CBC Comment DIFF FINAL DIFF FINAL Differential Comment Blood Urea Nitrogen 9 MG/DL 10 MG/DL Creatinine 0.88 MG/DL 0.91 MG/DL Random Glucose 143 MG/DL 150 MG/DL Calcium Level 9.0 MG/DL 8.6 MG/DL Sodium Level 144 MEQ/L 141 MEQ/L Potassium Level 4.1 MEQ/L 4.0 MEQ/L Chloride Level 110 MEQ/L 107 MEQ/L Carbon Dioxide Level 25.3 MEQ/L 24.4 MEQ/L Anion Gap 9 MEQ/L 10 MEQ/L Estimat Glomerular Filtration Rate 63 ML/MIN 61 ML/MIN Medical Decision Making Impression and Plan Impression: Stable neurologic function postoperative. Pain adequately controlled with oral medications Plan: Discontinue drain Continue therapy Remove Lopez Advance diet as tolerated Anticipate discharge home 10/20/2017 if remains stable Jose Chun MD Oct 19, 2017 20:20
[2017-10-19 20:43] VITALS: BP 124/60; PULSE 95; RESP 18; TEMP 99.2; O2SAT 96
[2017-10-19] MEDS: PARoxetine HCL 20 MG TAB PO SCH (21:55)
[2017-10-20 00:34] VITALS: BP 121/58; PULSE 92; RESP 18; TEMP 98.3; O2SAT 95
[2017-10-20 05:29] VITALS: BP 135/66; PULSE 94; RESP 18; TEMP 98.6; O2SAT 94
[2017-10-20] MEDS: LEVOTHYROXINE SODIUM 75 MCG TAB PO SCH (06:10)
[2017-10-20] MEDS: KETOROLAC TROMETHAMINE 30 MG/ML (IVP) VIAL IV PUSH SCH ×2 (06:11→14:36)
[2017-10-20 08:00] VITALS: BP 134/62; PULSE 83; RESP 18; TEMP 98.7; O2SAT 97
[2017-10-20] MEDS: MULTIVITAMIN TAB PO SCH (09:16)
[2017-10-20] MEDS: DOCUSATE SODIUM 100 MG CAP PO SCH (09:16)
[2017-10-20] MEDS: LISINOPRIL 10 MG TAB PO SCH (09:16)
[2017-10-20] MEDS: ESTRADIOL 1 MG TAB PO SCH (09:17)
[2017-10-20] MEDS: CYANOCOBALAMIN 1,000 MCG TAB PO SCH (09:19)
[2017-10-20] MEDS ORDERED: KETO10 PO (11:40)
[2017-10-20] MEDS ORDERED: TRAM50TA PO (11:40)
--- NOTE | 2017-10-20 11:41 | HHI.DCPOC ---
Discharge Care Plan Diagnosis: (1) Spondylolisthesis of lumbar region (2) Lumbar radiculopathy Your Health Problems Are: Difficulty with ADL Incision/Drains Exercise Tolerance Chronic Pain Goals to Promote Your Health * To prevent worsening of your condition and complications * To maintain your health at the optimal level Directions to Meet Your Goals Take your medications as prescribed Follow your dietary instruction Follow activity as directed Keep your appointments as scheduled Take your immunizations and boosters as scheduled If your symptoms worsen call your PCP, if no PCP go to Urgent Care Center or Emergency Room Smoking is Dangerous to Your Health. Avoid second hand smoke Call the 24-hour hour crisis hotline for domestic abuse at Jose Chun MD Oct 20, 2017 11:41
--- NOTE | 2017-10-20 12:42 | HHI.FF ---
Face to Face Verification Diagnosis: (1) Lumbar radiculopathy (2) Spondylolisthesis of lumbar region Physical Therapy Order: Evaluate and Treat, Improve ambulation, Strength and gait training Home Health Nursing Order: Medical education Signs/symptoms of disease process I have seen patient Nancy Do on 10/20/17. My clinical findings support the need for the requested home health care services because: Deconditioned w/ increased weakness Limited ability to care for self High risk of falls I certify that my clinical findings support that this patient is homebound because: Unsteady gait/balance Unsafe to leave home unassisted Jose Chun MD Oct 20, 2017 12:42
--- NOTE | 2017-10-20 12:43 | HHI.DS ---
Discharge Summary Admission Date Oct 18, 2017 at 09:12 Discharge Date: Oct 20, 2017 Admitting Diagnosis CBC/BMP: 10/19/17 1135 10/19/17 1135 Significant Findings Laboratory Tests Test 10/18/17 20:26 10/19/17 11:35 Red Blood Count 3.81 MIL/MM3 (4.00-5.30) 3.31 MIL/MM3 (4.00-5.30) Neutrophils (%) (Auto) 91.2 % (16.0-70.0) 88.8 % (16.0-70.0) Lymphocytes (%) (Auto) 6.9 % (9.0-44.0) 7.4 % (9.0-44.0) Neutrophils # (Auto) 8.9 TH/MM3 (1.8-7.7) 13.5 TH/MM3 (1.8-7.7) Lymphocytes # (Auto) 0.7 TH/MM3 (1.0-4.8) Random Glucose 143 MG/DL (74-106) 150 MG/DL (74-106) Chloride Level 110 MEQ/L (98-107) Estimat Glomerular Filtration Rate 63 ML/MIN (>89) 61 ML/MIN (>89) White Blood Count 15.2 TH/MM3 (4.0-11.0) Hemoglobin 10.9 GM/DL (11.6-15.3) Hematocrit 32.2 % (35.0-46.0) Pt Condition on Discharge: Good Discharge Disposition: Disch w/ Home Health Serv Discharge Instructions DIET: Follow Instructions for: As Tolerated, No Restrictions Activities to Avoid: Lifting/Bending, Strenuous Activity Follow up Referrals: Home Health New Medications: Ketorolac (Ketorolac) 10 Mg Tab 10 MG PO Q6HR PRN for PAIN LESS THAN 5 ON SCALE, #20 TAB 0 Refills Tramadol (Tramadol) 50 Mg Tab 50 MG PO Q6H PRN for PAIN, #20 TAB 0 Refills Continued Medications: Aspirin/Acetaminophen/Caffeine (Excedrin Migraine Caplet) 1 Each Tablet 1 TAB PO Q12HR PRN for PAIN SCALE 1 TO 6 Biotin (Biotin) 10 Mg Tab 10 MG PO DAILY for Nutritional Supplement, #1 BOTTLE 0 Refills Cyanocobalamin (Vitamin B-12) 1,000 Mcg Tab 1000 MCG PO DAILY for Nutritional Supplement, #1 BOTTLE 0 Refills Estradiol (Estradiol) 0.5 Mg Tab 0.5 MG PO DAILY for Estrogen Supplements, #30 TAB 0 Refills Levothyroxine (Levothyroxine) 75 Mcg Tab 75 MCG PO DAILY for Thyroid, #90 TAB 3 Refills Lisinopril (Lisinopril) 10 Mg Tab 10 MG PO DAILY, #90 TAB 3 Refills Multiple Vitamin (Multi-Vitamin Daily) 1 Tab Tab 1 TAB PO DAILY for Nutritional Supplement, TAB 0 Refills Paroxetine (Paroxetine) 20 Mg Tab 20 MG PO HS, #90 TAB 3 Refills Simvastatin (Simvastatin) 20 Mg Tab 20 MG PO HS for Cholesterol Management, #90 TAB 3 Refills Discontinued Medications: Naproxen Sodium (Aleve Arthritis) 220 Mg Tab 220 MG PO BID, TAB Jose Chun MD Oct 20, 2017 12:43
[2017-10-20 14:08] LABS: BASOPHIL % 0.2 % (0.0-2.0); EOSINOPHIL # 0.1 TH/MM3 (0-0.4); EOSINOPHIL % 1.1 % (0.0-4.0); HEMATOCRIT 32.6 % (35.0-46.0); LYMPH % 23.7 % (9.0-44.0); LYMPHOCYTE # 2.4 TH/MM3 (1.0-4.8); MEAN CELL VOLUME 98.4 FL (80.0-100.0); MEAN CORPUSCULAR HEMOGLOBIN 33.3 PG (27.0-34.0); MEAN CORPUSCULAR HGB CONC 33.9 % (32.0-36.0); MEAN PLATELET VOLUME 7.5 FL (7.0-11.0); MONO % 6.5 % (0.0-8.0); MONOCYTE # 0.7 TH/MM3 (0-0.9); NEUT % 68.5 % (16.0-70.0); PLATELET COUNT 237 TH/MM3 (150-450); RED BLOOD COUNT 3.31 MIL/MM3 (4.00-5.30); RED CELL DISTRIBUTION WIDTH 14.2 % (11.6-17.2); WHITE BLOOD COUNT 10.2 TH/MM3 (4.0-11.0)
[2017-10-20 14:35] LABS: BICARBONATE 26.8 MEQ/L (21.0-32.0); CALCIUM 8.7 MG/DL (8.5-10.1); CREATININE 0.81 MG/DL (0.50-1.00)
== END 2017-10-20 15:21 | disposition home or self-care (01) | DRG 455 ==
LOC: HSDI 09:12 → N05A 21:45
PROVIDERS: ADMIT Neurological Surgery; ATTEND Neurological Surgery
PROC: 0SG00J1 Fusion of Lumbar Vertebral Joint with Synthetic Substitute, Posterior Approach, Posterior Column, Open Approach (ICD-10-PCS; 2017-10-18)
PROC: 0ST20ZZ Resection of Lumbar Vertebral Disc, Open Approach (ICD-10-PCS; 2017-10-18)
PROC: 0SG00AJ Fusion of Lumbar Vertebral Joint with Interbody Fusion Device, Posterior Approach, Anterior Column, Open Approach (ICD-10-PCS; principal; 2017-10-18 13:57)
DX: M43.16 Spondylolisthesis, lumbar region (principal); I10 Essential (primary) hypertension; G89.29 Other chronic pain; M48.062 Spinal stenosis, lumbar region with neurogenic claudication; M54.16 Radiculopathy, lumbar region; Z96.651 Presence of right artificial knee joint; E78.5 Hyperlipidemia, unspecified; G47.30 Sleep apnea, unspecified; E03.9 Hypothyroidism, unspecified; F32.9 Major depressive disorder, single episode, unspecified
CPT/HCPCS: 72100; 76000; 80048; 85025; 86850; 86900; 86901; 94150; C1713; C9290; J0131; J1100; J1580; J1885; J2250; J2370; J2405; J2710; J3010; J3480; J7120; L0484